=== PATIENT | female | born 1970 | race Caucasian/White ===

== ENCOUNTER → 2020-05-17 | Outpatient (CLI) | payer OTHER | LOC: M.RAD 10:09 | PROVIDERS: ATTEND Obstetrics & Gynecology | DX: Z12.31 Encounter for screening mammogram for malignant neoplasm of breast (principal) ==

== ENCOUNTER → 2021-08-07 | Outpatient (CLI) | payer OTHER | LOC: M.RAD 10:04 | PROVIDERS: ATTEND Obstetrics & Gynecology | DX: Z12.31 Encounter for screening mammogram for malignant neoplasm of breast (principal) ==